=== PATIENT | female | born 1955 ===

== ENCOUNTER → 2018-04-19 | Day surgery (SDC) | payer MEDICARE, MEDICAID ==
[~2018-04-19] MED LIST: LIDOCAINE 2% JELLY 5 ML TUBE ONE
== END ==
LOC: END 08:45
PROVIDERS: ATTEND Surgery
DX: K21.9 Gastro-esophageal reflux disease without esophagitis (principal); Z88.0 Allergy status to penicillin; Z88.8 Allergy status to other drugs, medicaments and biological substances; Z88.2 Allergy status to sulfonamides
CPT/HCPCS: 91010; 91034